=== PATIENT | female | born 1985 | race Caucasian/White ===

== ENCOUNTER 2016-09-25 01:38 | Emergency (ER) | payer BC ==
--- NOTE | 2016-09-25 02:32 | ERPHSYRPT ---
- History of Present Illness Time Seen by Provider: 09/25/16 02:25 Source: patient Exam Limitations: no limitations Patient Subjective Stated Complaint: "started having pains in the left lower part of my back, when i laid down tonight it got worse. when i got up it hurt to pee and it was only a little " Triage Nursing Assessment: AAO, ambulated to room without difficulty, rubbing left flank and moaning Physician History: FOR THE PAST 18 HOURS PT HAS HAD LEFT MID/LOWER BACK PAIN WITH DYSURIA; DENIES FEVER, NAUSEA, VOMITING, ABDOMINAL PAIN, CHEST PAIN. Allergies/Adverse Reactions: No Known Drug Allergies Allergy (Verified 11/05/15 20:22) Hx Tetanus, Diphtheria Vaccination/Date Given: No Hx Influenza Vaccination/Date Given: No Hx Pneumococcal Vaccination/Date Given: No Immunizations Up to Date: Yes - Review of Systems Constitutional: No Fever Respiratory: No Dyspnea Cardiac: No Chest Pain Abdominal/Gastrointestinal: No Abdominal Pain, No Nausea, No Vomiting Genitourinary Symptoms: Dysuria Musculoskeletal: Back Pain Neurological: No Headache All Other Systems: Reviewed and Negative - Past Medical History Pertinent Past Medical History: No Neurological History: No Pertinent History ENT History: No Pertinent History Cardiac History: No Pertinent History Respiratory History: No Pertinent History Endocrine Medical History: No Pertinent History Musculoskeletal History: No Pertinent History GI Medical History: No Pertinent History History: No Pertinent History Psycho-Social History: No Pertinent History Female Reproductive Disorders: Other Other Medical History: habitual misscarriages - Past Surgical History Past Surgical History: Yes (tubal) Neuro Surgical History: No Pertinent History Cardiac: No Pertinent History Respiratory: No Pertinent History Gastrointestinal: No Pertinent History Genitourinary: No Pertinent History Musculoskeletal: Orthopedic Surgery Female Surgical History: No Pertinent History Other Surgical History: EAR. FOOT - Social History Smoking Status: Current every day smoker How long have you smoked: 12 Exposure to second hand smoke: No Alcohol Use: None Drug Use: none Patient Lives Alone: No Significant Family History: no pertinent family hx - Female History Hx Last Menstrual Period: 08/25 Hx Now: Yes (18 weeks by hx) - Nursing Vital Signs Nursing Vital Signs: Initial Vital Signs Temperature 98 F Temperature Source Oral Pulse Rate 72 Respiratory Rate 16 Blood Pressure [Right Arm] 128/87 Pain Intensity 9 - Physical Exam General Appearance: alert Eye Exam: PERRL/EOMI Ears, Nose, Throat Exam: TMs normal, pharynx normal, moist mucous membranes Neck Exam: normal inspection Respiratory Exam: lungs clear Cardiovascular Exam: normal heart sounds Gastrointestinal/Abdomen Exam: soft, normal bowel sounds, No tenderness Back Exam: normal range of motion Extremity Exam: normal inspection, No pedal edema Neurologic Exam: alert, cooperative Skin Exam: warm, dry SpO2 Interpretation: normal SpO2: 99 Oxygen Delivery: Room Air - Course Nursing assessment & vital signs reviewed: Yes Ordered Tests: Active Orders 24 hr Category Date Time Status CULTURE,URINE Stat Lab 09/25/16 02:40 Received UA W/ MICROSCOPIC Stat Lab 09/25/16 02:40 Completed UA W/RFX UR CULTURE Stat Lab 09/25/16 02:40 Completed Medication Summary Generic Name Dose Route Start Last Admin Trade Name Freq PRN Reason Stop Dose Admin Phenazopyridine HCl 200 mg 09/25/16 10:00 Pyridium 200 Mg PO 10/25/16 09:59 TID CLEMENT Discontinued Medications Generic Name Dose Route Start Last Admin Trade Name Freq PRN Reason Stop Dose Admin Acetaminophen/Hydrocodone Bitart 2 tab 09/25/16 02:45 09/25/16 02:52 Marshall 5/325 Mg PO 09/25/16 02:46 2 tab STAT ONE Administration Acetaminophen/Hydrocodone Bitart Confirm 09/25/16 02:51 Marshall 5/325 Mg Administered 09/25/16 02:52 Dose 2 tab .ROUTE .STK-MED ONE Ceftriaxone Sodium 1,000 mg 09/25/16 03:00 Rocephin 1000 Mg Inj IM 09/25/16 03:01 STAT ONE Lab/Rad Data: Laboratory Results 09/25/16 Range/Units 02:40 Ur Collection Type CLEAN CATCH Urine Color LT.YELLOW (YELLOW) Urine Appearance SLIGHTLY CLOUDY (CLEAR) Urine pH 6.5 (5-6) Ur Specific [place] 1.010 (1.005-1.025) Urine Protein NEGATIVE (Negative) Urine Glucose (UA) NEGATIVE (NEGATIVE) mg/dL Urine Ketones NEGATIVE (NEGATIVE) Urine Nitrite NEGATIVE (NEGATIVE) Urine Bilirubin NEGATIVE (NEGATIVE) Urine Urobilinogen 0.2 (0-1) mg/dL Urine WBC (Auto) MODERATE (NEGATIVE) Urine RBC (Auto) TRACE NON-HEM (0-5) Pancho/ul Urine Microscopic RBC 0-2 (0-2) /HPF Urine Microscopic WBC 10-15 (0-5) /HPF Ur Epithelial Cells MODERATE (FEW) /HPF Urine Bacteria FEW (NEGATIVE) /HPF Specimen Received 09/25/16:0240 - Departure Time of Disposition: 03:03 Departure Disposition: Home Clinical Impression: UTI Condition: Fair Critical Care Time: No Instructions: Urinary Tract Infection (UTI) Additional Instructions: FOLLOW UP WITH PRIVATE DOCTOR TOMORROW. Prescriptions: Nitrofurantoin Macro 100 mg [Macrobid 100MG Capsule] 100 mg PO BID #20 capsule Phenazopyridine HCl 200 mg [Pyridium 200 mg] 200 mg PO TID #7 tablet
[2016-09-25] MEDS ORDERED: NORCO 5/325 MG PO ONE (02:45)
[2016-09-25] MEDS ORDERED: NORCO 5/325 MG ONE (02:51)
[2016-09-25 02:57] LABS: Bacteria FEW /HPF (NEGATIVE); COMPLETE URINE MICROSCOPIC? YES; Collection Type CLEAN CATCH; Epithelial Cells MODERATE /HPF (FEW); Ph 6.5 (5-6)
[2016-09-25 02:58] LABS: ADD URINE CULTURE? YES (NO)
[2016-09-25] MEDS ORDERED: Rocephin 1000 MG INJ IM ONE (03:00)
[2016-09-25 03:03] VITALS: O2SAT 99
[2016-09-25] MEDS ORDERED: PYRIDIUM 200 MG ONE (03:10)
[2016-09-25] MEDS ORDERED: XYLOCAINE 1% HCL 20 ML MDV ONE (03:10)
[2016-09-25] MEDS ORDERED: Rocephin 1000 MG INJ ONE (03:10)
[2016-09-25 03:37] VITALS: BP 110/63; PULSE 78
[2016-09-25] MEDS ORDERED: PYRIDIUM 200 MG PO SCH (10:00)
== END 2016-09-25 03:38 | disposition home or self-care (01) ==
LOC: ED 01:38
DX: N39.0 Urinary tract infection, site not specified (principal); M54.5 Low back pain
CPT/HCPCS: 81000; 87077; 87086; 87186; 96372; 99283; J0696; A9270-GY

== ENCOUNTER 2022-08-19 13:31 | Day surgery (SDC) | payer BC, OTHER ==
[2013-02-25 02:15] VITALS: BP 120/70
[2022-08-19] MEDS ORDERED: Depo-Medrol 40 MG/ML IM ONE (13:32)
[2022-08-19] MEDS ORDERED: LIDOCAINE HCL 2% 100 MG/5 ML IJ ONE (13:32)
[2022-08-19] MEDS ORDERED: DIPRIVAN 200 MG/20 ML IV ONE ×2 (16:25→16:29)
[2022-08-19] MEDS ORDERED: Lactated Ringers 1,000 ML IV ONE (17:03)
--- NOTE | 2022-08-19 20:19 | XRAY ---
Indication: Bilateral L4-S1 MBB. Intraoperative fluoroscopy provided for 30 seconds. Single digital spot image submitted for interpretation demonstrates posterior needle tips projecting over the expected left and right L4-S1 nerve roots. Correlate with intraoperative findings/report.
--- NOTE | 2022-08-20 09:24 | XRAY ---
30 seconds of fluoroscopy was used in surgery for a bilateral L4-S1 MBB.
== END 2022-08-19 16:55 | disposition home or self-care (01) ==
LOC: SDC-PAIN 13:31
PROVIDERS: ATTEND Psychiatry & Neurology Pain Medicine
DX: M47.816 Spondylosis without myelopathy or radiculopathy, lumbar region (principal); Z79.899 Other long term (current) drug therapy
CPT/HCPCS: 64493; 64494; 72020; 77002; J1030; J2704

== ENCOUNTER 2022-10-07 11:52 | Day surgery (SDC) | payer OTHER ==
[2013-02-25 02:15] VITALS: BP 120/70
[2022-10-07] MEDS ORDERED: Depo-Medrol 40 MG/ML IM ONE (11:53)
[2022-10-07] MEDS ORDERED: BUPIVACAINE 0.5% VIAL IJ ONE (11:53)
[2022-10-07] MEDS ORDERED: DIPRIVAN 200 MG/20 ML IV ONE ×2 (13:53→14:04)
--- NOTE | 2022-10-07 15:19 | XRAY ---
Indication: Bilateral L4-S1 MBB. Intraoperative fluoroscopy provided for 28 seconds. Single digital spot image submitted for interpretation demonstrates posterior needle tips projecting over the expected left and right L4-S1 nerve roots. Correlate with intraoperative findings/report.
[2022-10-07] MEDS ORDERED: Lactated Ringers 1,000 ML IV ONE (15:43)
--- NOTE | 2022-10-07 17:07 | XRAY ---
28 seconds of fluoroscopy was used in surgery for a bilateral L4-S1 MBB.
== END 2022-10-07 14:30 | disposition home or self-care (01) ==
LOC: SDC-PAIN 11:52
PROVIDERS: ATTEND Psychiatry & Neurology Pain Medicine
DX: M47.816 Spondylosis without myelopathy or radiculopathy, lumbar region (principal); Z79.899 Other long term (current) drug therapy
CPT/HCPCS: 64493; 64494; 72020; 77002; J1030; J2704

== ENCOUNTER 2022-12-02 07:26 | Day surgery (SDC) | payer OTHER ==
[2013-02-25 02:15] VITALS: BP 120/70
[2022-12-02] MEDS ORDERED: Depo-Medrol 40 MG/ML IM ONE (07:27)
[2022-12-02] MEDS ORDERED: LIDOCAINE HCL 1% 50 MG/5 ML VL PF IJ ONE (07:27)
[2022-12-02] MEDS ORDERED: BUPIVACAINE 0.5% VIAL IJ ONE (07:27)
[2022-12-02] MEDS ORDERED: DIPRIVAN 200 MG/20 ML IV ONE ×2 (08:48→08:54)
[2022-12-02] MEDS ORDERED: Xylocaine-Mpf 2% 5 Ml Vial ONE (08:50)
[2022-12-02] MEDS ORDERED: Lactated Ringers 1,000 ML IV ONE (14:26)
--- NOTE | 2022-12-02 19:10 | XRAY ---
Indication: Right L4-S1 RFA. Intraoperative fluoroscopy provided for 28 seconds. 4 digital spot image submitted for interpretation demonstrates posterior needle tips projecting over the expected right L4-S1 nerve roots. Correlate with intraoperative findings/report.
--- NOTE | 2022-12-02 19:25 | XRAY ---
28 seconds of fluoroscopy was used in surgery for a right L4-S1 RFA.
== END 2022-12-02 09:22 | disposition home or self-care (01) ==
LOC: SDC-PAIN 07:26
PROVIDERS: ATTEND Psychiatry & Neurology Pain Medicine
DX: M47.816 Spondylosis without myelopathy or radiculopathy, lumbar region (principal); Z79.899 Other long term (current) drug therapy
CPT/HCPCS: 64635; 64636; 72100; 77002; J1030; J2001; J2704